=== PATIENT | male | born 1990 | race Caucasian/White ===

== ENCOUNTER 2017-06-13 22:22 | Emergency (ER) | payer BC ==
[2017-06-14] MEDS ORDERED: Tetan/Diph/Pertus SYR(Tdap)* 0.5 ML SYR(BOOSTRIX) use SYR IM ONE (00:30)
--- NOTE | 2017-06-14 01:06 | ED ---
Laceration/Wound HPI - HPI Summary HPI Summary: 26M presents with forehead and nose laceration today. He hit his head on a cow styles. He denies any LOC. He denies any n/v. He denies any dizziness or change in vision. has mild headache. does not know when tetanus was. denies any blood from nares. He has two lacerations with minimial bleeding one of left side forehead and another on bridge of nares. - History of Current Complaint Stated Complaint: HEAD INJURY Time Seen by Provider: 06/14/17 00:23 Pain Intensity: 5 - Allergy/Home Medications Allergies/Adverse Reactions: Allergies Allergy/AdvReac Type Severity Reaction Status Date / Time Unable to Obtain Allergy Verified 06/13/17 22:25 PMH/Surg Hx/FS Hx/Imm Hx Endocrine/Hematology History: Denies: Hx Anticoagulant Therapy Cardiovascular History: Denies: Hx Hypertension - Immunization History Date of Tetanus Vaccine: uknown Infectious Disease History: No Infectious Disease History: Denies: Traveled Outside the [place] in Last 30 Days - Family History Known Family History: Negative: Diabetes - Social History Alcohol Use: Occasionally Substance Use Type: Reports: None Review of Systems Negative: Fever Negative: Chest Pain Negative: Shortness Of Breath Positive: Other - facial laceration Positive: Headache All Other Systems Reviewed And Are Negative: Yes Physical Exam Triage Information Reviewed: Yes Vital Signs On Initial Exam: Initial Vitals Temp Pulse Resp BP Pulse Ox 97.8 F 90 18 129/91 97 06/13/17 22:25 06/13/17 22:25 06/13/17 22:25 06/13/17 22:25 06/13/17 22:25 Vital Signs Reviewed: Yes Appearance: Positive: Well-Appearing Skin: Positive: Warm, Dry, Other - 1cm by 1/4cm by 1/4cm laceration on left side of forehead, 1cm superficial laceration to bridge of nose Head/Face: Positive: Normal Head/Face Inspection, Other - no step off, racoon eyes, guzmán sign Eyes: Positive: Normal, EOMI, TAMI, Conjunctiva Clear ENT: Positive: Normal ENT inspection, Pharynx normal, TMs normal, Other - nasal septum appears midline Respiratory/Lung Sounds: Positive: Clear to Auscultation, Breath Sounds Present Cardiovascular: Positive: Normal, RRR Musculoskeletal: Positive: Strength/ROM Intact Neurological: Positive: Sensory/Motor Intact, Alert, Oriented to Person Place, Time, CN Intact II-III, Finger to Nose Psychiatric: Positive: Normal - [place] Coma Scale Coma Scale Total: 15 Procedures - Laceration/Wound Repair 1 Location: face Description: Linear Anesthesia: Local, 1.0% Length, Depth and Shape: 1cm by 1/4cm by 1/4cm Irrigated w/ Saline (ccs): 100 Laceration/Wound Explored: no foreign body removed Closure: Single Layer Suture Type: Prolene - 6-0 Number of Sutures: 2 Layer Closure?: No 2 Location: face Description: Linear Length, Depth and Shape: 1cm superficial Closure: Skin Adhesive, SteriStrips Diagnostics - Vital Signs Vital Signs Temp Pulse Resp BP Pulse Ox 06/13/17 22:25 97.8 F 90 18 129/91 97 - Laboratory Lab Statement: Any lab studies that have been ordered have been reviewed, and results considered in the medical decision making process. Laceration Repair Course/Dx - Course Course Of Treatment: 26M presents with forehead and nose laceration today. He hit his head on a cow styles. He denies any LOC. He denies any n/v. He denies any dizziness or change in vision. has mild headache. does not know when tetanus was. denies any blood from nares. He has two lacerations with minimial bleeding one of left side forehead and another on bridge of nares. on exam has normal neuro exam. 1cm laceration of forehead and 1cm superficial on bridge of noses. placed glue on bridge of nose and 2 sutures in other laceration. narea appears midline. according to [place] CT rules does not need any imaging. patient understand and agrees with plan. - Differential Dx Differental Diagnoses: Abrasion, Avulsion, Laceration, Other - contusion, concussion - Clinical Impression Provider Diagnoses: Laceration of face, Head injury Discharge - Discharge Plan Condition: Good Disposition: HOME Patient Education Materials: Care For Your Stitches (ED), Head Injury (ED), Skin Adhesive Care (ED) Referrals: No Primary Care Phys,NOPCP [Primary Care Provider] - Additional Instructions: Keep area clean and dry for 24 hours Take Tylenol or ibuprofen for pain every 6 hours Return to ED or primary for suture removal in 5 days glue and steristrips will fall off on own Return to ED if develop signs of infection such as fever, spreading redness, or pus formation, profuse vomiting, or any new or worsening symptoms
[2017-06-14 04:02] VITALS: BP 131/68
== END 2017-06-14 01:55 | disposition home or self-care (01) ==
LOC: ED 22:22
DX: S01.81XA Laceration without foreign body of other part of head, initial encounter (principal); S09.90XA Unspecified injury of head, initial encounter; W22.8XXA Striking against or struck by other objects, initial encounter; Y93.9 Activity, unspecified; Y92.9 Unspecified place or not applicable
CPT/HCPCS: 90471; 90715; 99282